=== PATIENT | female | born 1965 | race Caucasian/White ===

== ENCOUNTER → 2018-08-02 | Outpatient (CLI) | payer BC ==
--- NOTE | 2018-08-02 15:38 | KCIC ---
EXAM: Chest and right ribs, 4 views. HISTORY: Pain. Fall. COMPARISON: None. FINDINGS: A frontal view the chest and 3 views of the right ribs are obtained. There is no infiltrate, pleural effusion or pneumothorax. The heart is normal in size. There is cervical spinal fusion instrumentation. There is a minimally displaced lateral right ninth rib fracture. IMPRESSION: 1. Minimal displaced lateral right ninth rib fracture. 2. No acute pulmonary finding. Electronically signed by: Deysi Troncoso MD (08/02/2018 3:35 PM) [id number]
== END | disposition home or self-care (01) ==
LOC: KCIC 14:29
PROVIDERS: ATTEND Family Medicine
DX: S22.31XA Fracture of one rib, right side, initial encounter for closed fracture (principal); X58.XXXA Exposure to other specified factors, initial encounter; Y93.89 Activity, other specified; Y92.89 Other specified places as the place of occurrence of the external cause; Y99.8 Other external cause status
CPT/HCPCS: 71101

== ENCOUNTER → 2018-12-17 | Outpatient (CLI) | payer BC ==
--- NOTE | 2018-12-17 16:27 | KCIC ---
EXAM: Left knee, 3 views; pelvis and left hip, 3 views. HISTORY: Pain. COMPARISON: None. FINDINGS: Pelvis and left hip: A frontal view of the pelvis and 2 views of the left hip are obtained. There is no fracture, dislocation or subluxation. There is degenerative change at the lumbosacral junction. Left knee: 3 views of the left knee are obtained. There is mild medial compartment joint space narrowing. There is tricompartmental spurring. There is no fracture, dislocation or subluxation. There is no joint effusion. IMPRESSION: 1. Mild tricompartmental osteoarthritis of the left knee. 2. Degenerative change involving the lumbosacral junction. 3. No acute osseous finding. Electronically signed by: Deysi Troncoso MD (12/17/2018 4:24 PM) [id number]
== END | disposition home or self-care (01) ==
LOC: KCIC 15:25
PROVIDERS: ATTEND Family Medicine
DX: M17.12 Unilateral primary osteoarthritis, left knee (principal); M47.817 Spondylosis without myelopathy or radiculopathy, lumbosacral region; M25.552 Pain in left hip; M25.862 Other specified joint disorders, left knee
CPT/HCPCS: 73502; 73562

== ENCOUNTER → 2019-12-12 | Outpatient (CLI) | payer BC ==
--- NOTE | 2019-12-12 16:25 | KCIC ---
FOOT RIGHT 3V, ANKLE RIGHT 3V DATE: 12/12/2019 12:00 AM INDICATION: RT LATERAL ANKLE/FOOT PAIN, TWISTED ANKLE OVER 1 MONTH AGO / Spl. COMPARISON: None. FINDINGS: Bones: There is no evidence of acute fracture or dislocation. Plantar calcaneal enthesophyte. Joints: The ankle mortise is congruent. No widening of the distal tibiofibular syndesmosis. Mild degenerative changes of the first MTP joint. Miscellaneous: None. IMPRESSION: No evidence of acute ankle or foot fracture. Electronically signed by: Virgil Parker MD (12/12/2019 4:22 PM) [id number]
== END | disposition home or self-care (01) ==
LOC: KCIC 15:25
PROVIDERS: ATTEND Family Medicine
DX: M19.071 Primary osteoarthritis, right ankle and foot (principal); M77.31 Calcaneal spur, right foot
CPT/HCPCS: 73610; 73630

== ENCOUNTER → 2020-10-04 | Outpatient (CLI) | payer BC ==
--- NOTE | 2020-10-04 15:13 | KCIC ---
EXAM: Bilateral knees, 3 views. HISTORY: Pain. COMPARISON: 12/17/2018. FINDINGS: 3 views of both knees are obtained. There is moderate left and mild right medial compartmen t joint space narrowing. There is moderate bilateral tricompartmental spurring. There are small right and trace left knee effusions. There is no fracture, dislocation or subluxation. There is an inciden any small bone infarct aleena chondral within the distal right femoral metaphysis. IMPRESSION: 1. Moderate left medial compartment predominant tricompartmental osteophyte arthritis of both knees. 2. Small right and trace left knee effusions. Electronically signed by: Deysi Troncoso MD (10/04/2020 3:10 PM) [id number]
== END ==
LOC: KCIC 14:45
PROVIDERS: ATTEND Family Medicine
DX: M17.0 Bilateral primary osteoarthritis of knee (principal); M25.762 Osteophyte, left knee; M25.761 Osteophyte, right knee
CPT/HCPCS: 73562-50

== ENCOUNTER → 2021-09-22 | Outpatient (CLI) | payer OTHER ==
--- NOTE | 2021-09-22 16:22 | KCIC ---
EXAM: XR KNEE 3 VIEWS 09/22/2021 11:40 AM CLINICAL INDICATION: Bilateral osteoarthritis of the knees. Swelling. COMPARISON: Bilateral knee radiograph 10/04/2020 TECHNIQUE: Standing AP, oblique, and lateral views of the right and left knee FINDINGS: Left knee: No acute fracture. Unchanged moderate to severe medial compartment narrowing. The lateral compartment space is maintained. There are small tricompartmental osteophytes, greatest in the medial compartment. Small joint effusion. Right knee: No acute fracture. Unchanged moderate medial and lateral compartment narrowing. Unchanged prominent tricompartment osteophytes. Small joint effusion. IMPRESSION: 1. Unchanged tricompartmental degenerative joint disease in the left knee, moderate in the medial com partment. 2. Unchanged tricompartmental degenerative joint disease in the right knee, mild to moderate in the m edial and lateral compartments. Electronically signed by: Shahnaz Lynne MD (09/22/2021 4:19 PM) [id number]
== END ==
LOC: KCIC 11:36
PROVIDERS: ATTEND Family Medicine
DX: M17.0 Bilateral primary osteoarthritis of knee (principal); M25.461 Effusion, right knee; M25.462 Effusion, left knee; M25.761 Osteophyte, right knee; M25.762 Osteophyte, left knee
CPT/HCPCS: 73562-50